=== PATIENT | female | born 1935 | race Caucasian/White ===

== ENCOUNTER 2020-11-28 06:12 | Day surgery (SDC) | payer OTHER ==
[~2020-11-28] VITALS: Ht 147.3 cm; Wt 59.0 kg
[2020-11-28] MEDS ORDERED: LIDOCAINE 2% 100 MG/5 ML UJET TP ONE (07:41)
[2020-11-28] MEDS ORDERED: fentaNYL citrate 0.05 MG/ML VIAL ONE (07:41)
[2020-11-28] MEDS ORDERED: fentaNYL citrate 0.05 MG/ML VIAL IVP ONE (08:45)
== END 2020-11-28 08:40 | disposition home or self-care (01) ==
LOC: MDS 06:12 → MMU 06:13 → MDS 08:40
PROVIDERS: ATTEND Internal Medicine Gastroenterology
DX: K62.89 Other specified diseases of anus and rectum (principal)
CPT/HCPCS: 45330; J3010